=== PATIENT | male | born 2000 | race Caucasian/White ===

== ENCOUNTER 2018-05-21 22:59 | Emergency (ER) | END 2018-05-22 04:27 | disposition home or self-care (01) ==

== ENCOUNTER 2018-05-24 06:48 | Emergency (ER) | END 2018-05-24 07:54 | disposition home or self-care (01) ==

== ENCOUNTER 2018-05-31 06:49 | Emergency (ER) | END 2018-05-31 08:35 | disposition home or self-care (01) ==